=== PATIENT | female | born 1960 | race Caucasian/White ===

== ENCOUNTER → 2019-04-20 | Outpatient (CLI) | payer BC ==
--- NOTE | 2019-04-20 09:17 | RAD ---
EXAM: Chest, 2 views; thoracic spine, 3 views. HISTORY: Nontraumatic mid thoracic pain. COMPARISON: None. FINDINGS: 2 views of the chest and 3 views of the thoracic spine are obtained. There is linear lingular and left lower lobe opacity likely due to atelectasis or scarring. There is no consolidation, pleural effusion or pneumothorax. The heart is normal in size. There is apical pleural-parenchymal scarring. There is thoracolumbar scoliosis. There is slight increased kyphosis at the upper lumbar levels. There is also multilevel listhesis involving the cervical spine. There is degenerative endplate remodeling with disc space narrowing and osteophytosis at C5-C6 and C6-C7. This is not formally assessed on this exam. IMPRESSION: 1. Suspected linear lingular and left lower lobe atelectasis or scarring. The possibility of interstitial infiltrate is not completely excluded. 2. Multilevel degenerative change involving the cervical spine, primarily at C5-C7. There is also sclerosis, mild listhesis at the upper and mid cervical levels, and slight increased kyphosis of the upper lumbar levels. There is no acute osseous finding. Electronically signed by: Beata Arreola MD (04/20/2019 9:14 AM) [place] [id number]
--- NOTE | 2019-04-20 11:38 | RAD ---
CT CHEST WO CONTRAST History: Mid thoracic back pain. Technique: Noncontrast CT of the chest was performed. Coronal and sagittal reconstructions were performed. Exposure: One or more of the following individualized dose reduction techniques were utilized for this examination: 1. Automated exposure control 2. Adjustment of the mA and/or kV according to patient size 3. Use of iterative reconstruction technique. Comparison: None Findings: Chest: No consolidation or pleural effusion. Normal heart size. Bilateral breast implants. Small mediastinal lymph nodes the largest precarinal lymph node measures 1.1 x 0.8 cm, likely reactive. Minimal coronary artery calcifications. Mild centrilobular emphysema. Secretions within the right anterior middle lobe bronchus. Right medial middle lobe subsegmental atelectasis. Bilateral lower lobe subsegmental atelectasis or scarring. Tiny 2 mm right upper lobe pulmonary nodule (series 5 image #69). 2 mm right anterior upper lobe pulmonary nodule (image #[id number]). Upper abdomen: Left adrenal nodule measures 1.0 x 0.8 cm with decreased Hounsfield units compatible with adrenal adenoma. Bones: Accentuated thoracic kyphosis. T9 mild superior endplate compression fracture. Upper lumbar degenerative changes. Impression: 1. T9 mild superior endplate compression fracture, most likely chronic. Recommend comparison with prior imaging studies. If persistent clinical concern for acute pathology MRI can better evaluate. 2. Mild pulmonary emphysema. 3. Tiny pulmonary nodules. If the patient is high risk recommend one-year follow-up. 4. Right middle and bilateral lower lobe subsegmental atelectasis or scarring. 5. Small left adrenal adenoma. Electronically signed by: Julián Nelson DO (04/20/2019 11:35 AM) [id number]
== END | disposition home or self-care (01) ==
LOC: PMG 08:45
PROVIDERS: ATTEND Physician Assistant Medical
DX: M47.812 Spondylosis without myelopathy or radiculopathy, cervical region (principal); M41.85 Other forms of scoliosis, thoracolumbar region; M48.02 Spinal stenosis, cervical region; J43.2 Centrilobular emphysema; J98.11 Atelectasis; R91.8 Other nonspecific abnormal finding of lung field; M48.54XA Collapsed vertebra, not elsewhere classified, thoracic region, initial encounter for fracture; D35.02 Benign neoplasm of left adrenal gland
CPT/HCPCS: 71046; 71250; 72072

== ENCOUNTER → 2019-06-02 | Outpatient (CLI) | payer BC ==
--- NOTE | 2019-06-02 16:06 | RAD ---
Bone densitometry 06/02/2019 9:55 AM Indication: Adult fracture. Vertebral compression fracture. Comparison Study: None available.. Discussion: Bone Densitometry was performed with dual photon absorption of the lumbar spine and right proximal femur Lumbar Spine: Degenerative changes of the lumbar spine noted. This may affect measurement bone mineral density. Bone average density is 0.958g/cm2 for L1-L4. T-Score is -1.9. Right femoral neck: Bone average density is 0.783 g/cm2. T-Score is -1.8. IMPRESSION: Osteopenia. Bone mineral density measurement of the lumbar spine could be falsely elevated. Fracture risk is high. Recommend post therapeutic follow-up exam. Note: Definitions established by the World Health Organization: Normal: T-score is -1.0 or above. Osteopenia: T-score is between -1.0 and -2.5. Osteoporosis: T-score is -2.5 or below. Electronically signed by: Bobby Villalobos MD (06/02/2019 4:03 PM) [id number]
== END | disposition home or self-care (01) ==
LOC: DXRAD 09:47
PROVIDERS: ATTEND Physician Assistant Medical
DX: M85.88 Other specified disorders of bone density and structure, other site (principal); M48.54XA Collapsed vertebra, not elsewhere classified, thoracic region, initial encounter for fracture
CPT/HCPCS: 77080

== ENCOUNTER → 2019-12-21 | Outpatient (CLI) | payer BC ==
--- NOTE | 2019-12-21 08:49 | RAD ---
CT ABDOMEN PELVIS WO CONTRAST History: Pelvic pain. Technique: Noncontrast examination of the abdomen and pelvis. Coronal and sagittal reconstructions were performed. Exposure: One or more of the following individualized dose reduction techniques were utilized for this examination: 1. Automated exposure control 2. Adjustment of the mA and/or kV according to patient size 3. Use of iterative reconstruction technique. Comparison: None Findings: Lower chest: No consolidation or pleural effusion. Bilateral breast implants. Abdomen and pelvis: The liver, spleen, pancreas and gallbladder are unremarkable. No biliary ductal dilatation. Unremarkable noncontrast appearance of the kidneys. No hydronephrosis. No renal calculi. Decompressed urinary bladder. Duodenal diverticulum. 1.0 cm left adrenal nodule with decreased Hounsfield units compatible with benign adenoma. No follow-up imaging is recommended per consensus recommendations based on imaging criteria. Sigmoid colonic wall thickening with adjacent inflammatory changes and diverticulosis compatible with diverticulitis. No abscess. No pneumoperitoneum. Normal appendix. No evidence of bowel obstruction. No pathologic lymphadenopathy. No ascites. Atheromatous plaque throughout the nonaneurysmal abdominal aorta and branch vessels. Bones: Multilevel lumbar spondylosis most prominent L2-L3. Impression: 1. Acute sigmoid diverticulitis. No abscess or perforation. Electronically signed by: Julián Nelson DO (12/21/2019 8:46 AM) [id number]
[2019-12-21 09:15] LABS: BASO % 1 % (0-3); EOS # 0.2 x10^3/uL (0.0-0.7); EOS % 5 % (0-3); HEMATOCRIT 41.4 % (36.0-47.0); HEMOGLOBIN 13.5 g/dL (12.0-15.5); LYMPH # 1.2 x10^3/uL (1.0-4.8); LYMPH % 24 % (24-48); MEAN CORPUSCULAR HEMOGLOBIN 30 pg (25-35); MEAN CORPUSCULAR HGB CONC 33 g/dL (31-37); MEAN CORPUSCULAR VOLUME 91 fL (79-100); MONO # 0.3 x10^3/uL (0.0-1.1); MONO % 7 % (0-9); NEUT % 63 % (31-73); PLATELET COUNT 219 x10^3/uL (140-400); RED BLOOD COUNT 4.55 x10^6/uL (3.50-5.40); RED CELL DISTRIBUTION WIDTH 15.9 % (11.5-14.5); WHITE BLOOD COUNT 4.8 x10^3/uL (4.0-11.0)
[2019-12-21 09:17] LABS: ALBUMIN 3.7 g/dL (3.4-5.0); ALBUMIN/GLOBULIN RATIO 1.2 (1.0-1.7); CALCIUM 9.2 mg/dL (8.5-10.1); CREATININE 0.6 mg/dL (0.6-1.0); GFR 101.6; POTASSIUM 4.1 mmol/L (3.5-5.1); TOTAL BILIRUBIN 0.3 mg/dL (0.2-1.0); TOTAL PROTEIN 6.7 g/dL (6.4-8.2)
[2019-12-21 09:21] LABS: BILIRUBIN,URINE NEG (NEG); CLARITY,URINE HAZY; COLOR,URINE YELLOW; GLUCOSE,URINE NEG (NEG); NITRITE,URINE NEG (NEG); UROBILINOGEN,URINE 0.2 mg/dL (0.2 mg/dL)
[2019-12-21 09:22] LABS: BACTERIA,URINE FEW /HPF (0-FEW); RBC,URINE OCC /HPF (0-2); SQUAMOUS EPITHELIAL CELL,UR FEW /LPF
[2019-12-21 10:19] LABS: SEDIMENTATION RATE 10 (0-25)
== END | disposition home or self-care (01) ==
LOC: CT 08:11
PROVIDERS: ATTEND Physician Assistant Medical
DX: K57.30 Diverticulosis of large intestine without perforation or abscess without bleeding (principal); K57.32 Diverticulitis of large intestine without perforation or abscess without bleeding; K57.10 Diverticulosis of small intestine without perforation or abscess without bleeding; I70.0 Atherosclerosis of aorta; M47.816 Spondylosis without myelopathy or radiculopathy, lumbar region
CPT/HCPCS: 36415; 74176; 80053; 81001; 85025; 85651; 87086

== ENCOUNTER → 2020-03-17 | Outpatient (CLI) | payer BC ==
--- NOTE | 2020-03-17 15:40 | RAD ---
CT study of the abdomen and pelvis without contrast Clinical indications: Left lower quadrant abdominal pain. Diarrhea. TECHNIQUE: Noncontrast helical CT scanning of the abdomen and pelvis was performed. Without contrast, the sensitivity to detect organ pathology and GI tract pathology is decreased. PQRS compliance Statement One or more of the following individualized dose reduction techniques were utilized for this study: 1. Automated exposure control 2. Adjustment of the mA and/or kV according to patient size 3. Use of iterative reconstruction technique COMPARISON: December 21, 2019. FINDINGS: The liver and spleen and pancreas are homogeneous in appearance on this noncontrast study. Gallbladder is normal and no extrahepatic biliary ductal dilatation is seen. Small stable left adrenal adenoma seen. No hydronephrosis or hydroureter or urinary tract stone is evident. No focal aneurysmal dilatation of the abdominal aorta is seen. Small retroperitoneal lymph nodes are stable. No enlarged abdominal or pelvic lymphadenopathy is evident. Urinary bladder is not abnormally distended. No uterine mass is seen. No dominant ovarian cyst or mass is evident. The appendix is normal. No obstructive bowel pattern is evident. There is diffuse wall thickening of the sigmoid colon prominently involving the mid and distal aspects. There is moderate pericolonic inflammatory change here. Findings have progressed from the prior study. No abscess or free fluid is seen. No free intraperitoneal air is seen. No lung base consolidation is evident. No lytic process is seen. IMPRESSION: Worsening wall thickening and pericolonic inflammation of the sigmoid colon which may indicate worsening sigmoid diverticulitis or segmental colitis. No abscess or free air or bowel obstruction is seen. Electronically signed by: Linus Serrano MD (03/17/2020 3:37 PM) [id number]
== END ==
LOC: DXRAD 15:06
PROVIDERS: ATTEND Physician Assistant Medical
DX: K52.89 Other specified noninfective gastroenteritis and colitis (principal); D35.02 Benign neoplasm of left adrenal gland
CPT/HCPCS: 74176

== ENCOUNTER 2020-04-13 10:30 | Emergency (ER) | payer BC ==
[~2020-04-13] VITALS: Ht 167.6 cm; Wt 79.2 kg
[2020-04-13] MEDS ORDERED: CONTRAST GIVEN. MC PRN (11:00)
[2020-04-13] MEDS: IOHEXOL 300 MG/ML 75 ML VIAL. IV ONE (11:03)
--- NOTE | 2020-04-13 11:16 | PHYS DOC ---
General Adult EDM: Chief Complaint: ABDOMINAL PAIN HPI: HPI: 59-year-old female presents with lower abdominal pain. The patient had a colonoscopy prep last night because she is supposed to have a colonoscopy today in a few hours. She comes the emergency room because she has severe cramping of the lower abdominal area and the right side. She also has some blood in her last stool. She had an episode of vomiting about 7 hours ago. She no longer feels nauseous. She is very concerned about this increased pain. She was recently treated for diverticulitis in this colonoscopy as follow-up from that. She denies fever chills. Review of Systems: Review of Systems: Constitutional: Denies fever or chills Eyes: Denies change in visual acuity HENT: Denies nasal congestion or sore throat Respiratory: Denies cough or shortness of breath Cardiovascular: Denies chest pain or edema GI: Lower abdominal pain, nausea, vomiting, bloody stools, diarrhea : Denies dysuria Musculoskeletal: Denies back pain or joint pain Integument: Denies rash Neurologic: Denies headache, focal weakness or sensory changes Endocrine: Denies polyuria or polydipsia Lymphatic: Denies swollen glands Psychiatric: Denies depression or anxiety Heart Score: Risk Factors: Risk Factors: DM, Current or recent (<one month) smoker, HTN, HLP, family history of CAD, obesity. Risk Scores: Score 0 - 3: 2.5% MACE over next 6 weeks - Discharge Home Score 4 - 6: 20.3% MACE over next 6 weeks - Admit for Clinical Observation Score 7 - 10: 72.7% MACE over next 6 weeks - Early Invasive Strategies Current Medications: Current Meds: Current Medications Medications (Trade) Dose Ordered Sig/Sridevi Start Time Stop Time Status Last Admin Dose Admin Info (Do NOT chart on this entry -- for MONITORING) 1 each PRN DAILY PRN 04/13/20 11:00 04/15/20 10:59 Iohexol (Omnipaque 300 Mg/ml) 75 ml 1X ONCE 04/13/20 11:00 04/13/20 11:01 DC 04/13/20 11:03 75 ML Pantoprazole Sodium (Protonix Vial) 40 mg 1X ONCE 04/13/20 11:00 04/13/20 11:01 DC Sodium Chloride 1,000 ml @ 1,000 mls/hr 1X ONCE 04/13/20 11:00 04/13/20 11:59 Allergies: Allergies: Allergies Coded Allergies Type Severity Reaction Last Updated Verified acetaminophen Allergy Unknown 04/13/20 Yes oxycodone Allergy Unknown 04/13/20 Yes tizanidine Allergy Unknown 04/13/20 Yes Physical Exam: PE: Constitutional: Well developed, well nourished, no acute distress, non-toxic appearance. [] HENT: Normocephalic, atraumatic, bilateral external ears normal, oropharynx moist, no oral exudates, nose normal. [] Eyes: PERRLA, EOMI, conjunctiva normal, no discharge. [] Neck: Normal range of motion, no tenderness, supple, no stridor. [] Cardiovascular: Heart rate regular rhythm, no murmur [] Lungs & Thorax: Bilateral breath sounds clear to auscultation [] Abdomen: Bowel sounds normal, soft, lower abdominal tenderness with guarding, no masses, no pulsatile masses. [] Skin: Warm, dry, no erythema, no rash. [] Back: No tenderness, no CVA tenderness. [] Extremities: No tenderness, no cyanosis, no clubbing, ROM intact, no edema. [] Neurologic: Alert and oriented X 3, normal motor function, normal sensory function, no focal deficits noted. [] Psychologic: Affect normal, judgement normal, mood normal. [] EKG: EKG: [] Radiology/Procedures: Radiology/Procedures: [] Impressions: Study: CT abdomen/pelvis with intravenous contrast Indication: Abdominal pain. Comparison: Most recently on 03/17/2020 Technique: Helical CT imaging performed of the abdomen and pelvis after the intravenous administration of 75 cc Omnipaque contrast. Sagittal and coronal reformats were obtained. One or more of the following individualized dose reduction techniques were utilized for this examination: 1. Automated exposure control 2. Adjustment of the mA and/or kV according to patient size 3. Use of iterative reconstruction technique. Findings: Chest: Unchanged partially imaged breast implants. Mild basilar atelectasis. Liver: Mild hepatic steatosis. A few subcentimeter low-attenuation foci such as seen within the right hepatic lobe on image 9 series 2 were present on the comparison and have not significant changed. Gallbladder/Biliary Tree: No CT findings of acute cholecystitis. Pancreas: Unremarkable. Spleen: Within normal limits for size. Adrenal Glands: Unchanged left adrenal adenoma. Kidneys/Ureters/Bladder: Both kidneys are within normal limits. No hydroureteronephrosis. Reactive inflammatory changes surrounding the partially decompressed bladder. Reproductive Organs: Small left ovarian cyst is better seen on this contrast enhanced study relative to the comparison but was present previously and has not significant changed in size. Unremarkable right adnexa. Reactive inflammatory changes surrounding the uterus. As detailed below, a fluid and gas containing collection compatible with an abscess secondary to diverticulitis abuts the cephalad margin of the uterine fundus, image 31 series 4. Colon: Extensive inflammatory changes surrounding the mid sigmoid colon that has progressed since the 03/17/2020 comparison. Given the presence of diverticuli this is again most likely on account of diverticulitis. There is now a peripherally enhancing fluid collection containing gas that tracks below as well as along both sides of the sigmoid colon. This collection is well seen along the margin of the colon on image 62 series 2 and below the colon abutting the cephalad margin of the uterus on image 25 series 3. This abscess measures up to 3.5 cm craniocaudal by 4 cm transverse by 4.6 cm AP. No localized wall thickening or pericolonic inflammation of the colon proximal to the sigmoid aspect. Incompletely formed stool within portions of the colon. Appendix: Normal. Small Bowel: Reactive inflammatory changes of small bowel within the lower abdomen/upper pelvis. No small bowel obstruction. Stomach: Not well evaluated due to underdistention. Vasculature: Scattered calcified and noncalcified atheromatous plaque. Mildly tortuous but nonaneurysmal abdominal aorta. Lymph Nodes: Within normal limits. Peritoneum and Body Wall: Small volume free fluid along the right pelvic sidewall such as on image 64 series 2 without peripheral enhancement to suggest an additional drainable fluid collection. Scant amount of free fluid within the deep pelvis. No free air seen throughout the abdomen. Bones: New from 03/17/2020 is a superior endplate compression fracture at T11 with approximately 30-40 percent central height loss. No significant retropulsion and there is no osseous central canal or neural foraminal encroachment at this level. This is favored subacute in age. No change in vertebral body height elsewhere. There is again lumbar levocurvature with the apex at L2-L3 and degenerative rightward translation of L1 on L2. Miscellaneous: None. Impression: 1. Worsened inflammatory changes centered around the mid sigmoid colon since 03/17/2020. Given background diverticulosis this is most compatible with worsening diverticulitis. There is now a rim-enhancing fluid collection containing gas compatible with an abscess that tracks along both the right and left aspect of the sigmoid colon over a short length and extends downward to abut the upper margin of the uterus measuring up to 3.5 cm craniocaudal x 4 cm transverse x 4.6 in meters AP. Small amount of free pelvic fluid elsewhere without peripheral enhancement to suggest an additional abscess. Follow-up is recommended to confirm resolution and exclude an underlying mass. 2. New from 03/17/2020 but appearing subacute is a superior endplate compression fracture at T11 with up to approximately 30-40 percent central height loss and no retropulsion. 3. Additional chronic findings as detailed in the body the report. Electronically signed by: HARJIT OHARA MD (04/13/2020 11:49 AM) [id number] DICTATED AND SIGNED BY: HARJIT OHARA MD DATE: 04/13/20 1149 CC: MICHAEL LOPEZ DO; [facility] ~ Course & Med Decision Making: Course & Med Decision Making Pertinent Labs and Imaging studies reviewed. (See chart for details) The patient has not has an elevated white count of 22. Her CT scan shows worsening diverticulitis with abscess formation. See official read for more details. I have started her on Zosyn. I spoke with Dr. Ch and he has recommended transferring the patient to [facility]. He has accepted her for admission and transfer. The patient is in agreement with this plan. She will go by ambulance. [] Dragon Disclaimer: Dragon Disclaimer: This electronic medical record was generated, in whole or in part, using a voice recognition dictation system. Departure Departure: Impression: Primary Impression: Diverticulitis Disposition: 02 XFER [facility] Admitting Physician: Aspen Ch Condition: STABLE Referrals: [facility] (PCP) Justification of Admission: Justification of Admission: Justification of Admission Dx: Yes Comments: Diverticulitis with abscess MICHAEL LOPEZ DO Apr 13, 2020 11:16
[2020-04-13 11:18] LABS: BASO # 0.1 x10^3/uL (0.0-0.2); BASO % 1 % (0-3); EOS % 0 % (0-3); HEMATOCRIT 44.7 % (36.0-47.0); HEMOGLOBIN 14.6 g/dL (12.0-15.5); LYMPH % 4 % (24-48); MEAN CORPUSCULAR HEMOGLOBIN 30 pg (25-35); MEAN CORPUSCULAR HGB CONC 33 g/dL (31-37); MEAN CORPUSCULAR VOLUME 90 fL (79-100); MONO # 1.1 x10^3/uL (0.0-1.1); MONO % 5 % (0-9); NEUT # 20.4 x10^3uL (1.8-7.7); NEUT % 90 % (31-73); PLATELET COUNT 221 x10^3/uL (140-400); RED BLOOD COUNT 4.95 x10^6/uL (3.50-5.40); RED CELL DISTRIBUTION WIDTH 17.8 % (11.5-14.5); WHITE BLOOD COUNT 22.6 x10^3/uL (4.0-11.0)
[2020-04-13] MEDS: IV NORMAL SALINE 1,000ML 1,000 ML IV ONE (11:20)
[2020-04-13] MEDS: PANTOPRAZOLE IV 40 MG VIAL. IVP ONE (11:21)
[2020-04-13 11:32] LABS: CREATININE 1.1 mg/dL (0.6-1.0); GFR 50.5; POTASSIUM 3.7 mmol/L (3.5-5.1)
[2020-04-13 11:38] LABS: ALBUMIN 3.7 g/dL (3.4-5.0); ALBUMIN/GLOBULIN RATIO 1.2 (1.0-1.7); TOTAL BILIRUBIN 0.8 mg/dL (0.2-1.0); TOTAL PROTEIN 6.7 g/dL (6.4-8.2)
--- NOTE | 2020-04-13 11:52 | RAD ---
Study: CT abdomen/pelvis with intravenous contrast Indication: Abdominal pain. Comparison: Most recently on 03/17/2020 Technique: Helical CT imaging performed of the abdomen and pelvis after the intravenous administration of 75 cc Omnipaque contrast. Sagittal and coronal reformats were obtained. One or more of the following individualized dose reduction techniques were utilized for this examination: 1. Automated exposure control 2. Adjustment of the mA and/or kV according to patient size 3. Use of iterative reconstruction technique. Findings: Chest: Unchanged partially imaged breast implants. Mild basilar atelectasis. Liver: Mild hepatic steatosis. A few subcentimeter low-attenuation foci such as seen within the right hepatic lobe on image 9 series 2 were present on the comparison and have not significant changed. Gallbladder/Biliary Tree: No CT findings of acute cholecystitis. Pancreas: Unremarkable. Spleen: Within normal limits for size. Adrenal Glands: Unchanged left adrenal adenoma. Kidneys/Ureters/Bladder: Both kidneys are within normal limits. No hydroureteronephrosis. Reactive inflammatory changes surrounding the partially decompressed bladder. Reproductive Organs: Small left ovarian cyst is better seen on this contrast enhanced study relative to the comparison but was present previously and has not significant changed in size. Unremarkable right adnexa. Reactive inflammatory changes surrounding the uterus. As detailed below, a fluid and gas containing collection compatible with an abscess secondary to diverticulitis abuts the cephalad margin of the uterine fundus, image 31 series 4. Colon: Extensive inflammatory changes surrounding the mid sigmoid colon that has progressed since the 03/17/2020 comparison. Given the presence of diverticuli this is again most likely on account of diverticulitis. There is now a peripherally enhancing fluid collection containing gas that tracks below as well as along both sides of the sigmoid colon. This collection is well seen along the margin of the colon on image 62 series 2 and below the colon abutting the cephalad margin of the uterus on image 25 series 3. This abscess measures up to 3.5 cm craniocaudal by 4 cm transverse by 4.6 cm AP. No localized wall thickening or pericolonic inflammation of the colon proximal to the sigmoid aspect. Incompletely formed stool within portions of the colon. Appendix: Normal. Small Bowel: Reactive inflammatory changes of small bowel within the lower abdomen/upper pelvis. No small bowel obstruction. Stomach: Not well evaluated due to underdistention. Vasculature: Scattered calcified and noncalcified atheromatous plaque. Mildly tortuous but nonaneurysmal abdominal aorta. Lymph Nodes: Within normal limits. Peritoneum and Body Wall: Small volume free fluid along the right pelvic sidewall such as on image 64 series 2 without peripheral enhancement to suggest an additional drainable fluid collection. Scant amount of free fluid within the deep pelvis. No free air seen throughout the abdomen. Bones: New from 03/17/2020 is a superior endplate compression fracture at T11 with approximately 30-40 percent central height loss. No significant retropulsion and there is no osseous central canal or neural foraminal encroachment at this level. This is favored subacute in age. No change in vertebral body height elsewhere. There is again lumbar levocurvature with the apex at L2-L3 and degenerative rightward translation of L1 on L2. Miscellaneous: None. Impression: 1. Worsened inflammatory changes centered around the mid sigmoid colon since 03/17/2020. Given background diverticulosis this is most compatible with worsening diverticulitis. There is now a rim-enhancing fluid collection containing gas compatible with an abscess that tracks along both the right and left aspect of the sigmoid colon over a short length and extends downward to abut the upper margin of the uterus measuring up to 3.5 cm craniocaudal x 4 cm transverse x 4.6 in meters AP. Small amount of free pelvic fluid elsewhere without peripheral enhancement to suggest an additional abscess. Follow-up is recommended to confirm resolution and exclude an underlying mass. 2. New from 03/17/2020 but appearing subacute is a superior endplate compression fracture at T11 with up to approximately 30-40 percent central height loss and no retropulsion. 3. Additional chronic findings as detailed in the body the report. Electronically signed by: HARJIT OHARA MD (04/13/2020 11:49 AM) [id number]
[2020-04-13] MEDS ORDERED: IV NORMAL SALINE 50ML 50 ML ONE (12:19)
[2020-04-13] MEDS ORDERED: PIPERACILLIN/TAZOBACTAM 3.375 GM VIAL IV ONE (12:19)
[2020-04-13] MEDS: PIPERACILLIN/TAZOBACTAM 3.375 GM in IV NORMAL SALINE 50ML 50 ML IV ONE (12:24)
[2020-04-13 12:37] LABS: % ATYL 1 % (0-0); % BANDS 16 % (0-9); % LYMPHS 1 % (24-48); % MONOS 5 % (0-10); % SEGS 77 % (35-66)
[2020-04-13 12:38] LABS: PLT ESTIMATE ADEQUATE (ADEQUATE)
[2020-04-13] MEDS: ONDANSETRON PF 4 MG/2 ML VIAL. IVP ONE (12:51)
[2020-04-13] MEDS: MORPHINE SULFATE 4 MG/ML DISP.SYRIN. IV ONE (12:52)
[2020-04-13 14:15] VITALS: BP 143/100
[2020-04-13 14:41] LABS: BACTERIA,URINE 0 /HPF (0-FEW); BILIRUBIN,URINE NEG (NEG); CLARITY,URINE CLEAR; COLOR,URINE YELLOW; GLUCOSE,URINE NEG (NEG); NITRITE,URINE NEG (NEG); RBC,URINE 0 /HPF (0-2); SQUAMOUS EPITHELIAL CELL,UR FEW /LPF; UROBILINOGEN,URINE 0.2 mg/dL (0.2 mg/dL); WBC,URINE 0 /HPF (0-4)
== END 2020-04-13 14:15 | disposition short-term general hospital (02) ==
LOC: ER 10:30
DX: K57.80 Diverticulitis of intestine, part unspecified, with perforation and abscess without bleeding (principal); R11.2 Nausea with vomiting, unspecified; Z88.6 Allergy status to analgesic agent; Z88.5 Allergy status to narcotic agent
CPT/HCPCS: 36415; 74177; 80053; 81001; 85007; 85025; 96361; 96365; 96366; 96375; 99285; C9113; J2270; J2405; J2543; J7030; Q9967

== ENCOUNTER → 2020-05-09 | Outpatient (CLI) | payer BC ==
[2020-04-13 14:15] VITALS: BP 143/100
[~2020-05-09] MED LIST: IOHEXOL 240 MG/ML 50ML VIAL. ONE; IOHEXOL 240 MG/ML 50ML VIAL. PO ONE; IOHEXOL 300 MG/ML 75 ML VIAL. IV ONE
--- NOTE | 2020-05-09 15:57 | RAD ---
CT ABD PELV W/ORAL IV CONTRAST Indication: Abscess, drain Technique: Postcontrast CT imaging was performed of the abdomen and pelvis, multiplanar reconstruction images submitted. Oral contrast was also given. One or more of the following individualized dose reduction techniques were utilized for this examination: 1. Automated exposure control 2. Adjustment of the mA and/or kV according to patient size 3. Use of iterative reconstruction technique. Comparison: April 13, 2020 Findings: There is some motion. There is now pigtail catheter terminating in the left parasagittal pelvis. This is located just superior to the uterus and inferior to the mid sigmoid colon. There is no significant residual fluid collection in the pelvis about the catheter. Previously seen inflammatory change in the pelvis has significantly decreased, some residual most notably along the posterior aspect of the mid sigmoid colon. Focus of density in the left pelvis image 67 series 2 about 1.3 cm is believed to be a component of left adnexa. There is some residual wall thickening of the mid sigmoid colon. There is variable retained stool of the descending and sigmoid colon. Bowel is not dilated. There is no free air or significant free fluid. Normal caliber appendix is visualized without adjacent inflammatory change. There is again likely diverticulum along the descending duodenum. Some patchy minimal density of the visualized lung parenchyma at the lung bases is more likely component of atelectasis. No new abnormality is identified of the liver, spleen, or pancreas. There are again a few tiny hypodense foci of the liver too small to characterize, largest 0.2 cm. Gallbladder is present without obvious intraluminal abnormality by CT. Both kidneys enhance. There is now very mild left hydroureter and hydronephrosis. There is mild right renal pelviectasis and mild right hydroureter. Urinary bladder is somewhat distended. 1 cm likely nodule of the left adrenal gland is similar. There is emphysema of the visualized lung bases. There is again superior T11 compression deformity although new since March 17, 2020 exam. There is superior compression deformity of T9 vertebral body, present on April 20, 2019 CT chest exam. There is advanced degenerative disc disease at L2-3 and to a somewhat lesser degree at L1-2, also spondylosis greatest at L2-3. There is [id number] levoscoliosis centered near L2-3. There is mild right lateral subluxation of L1 relative to L2. There is some scattered mild calcified plaque of the abdominal aorta. IMPRESSION: 1. There is now a pigtail catheter in the pelvis as described, no significant residual fluid collection/abscess about the thick walled, mid sigmoid colon. Colonic wall thickening again may be due to to sequela of diverticulitis although mass not excludable by imaging. Small focus of density of the left pelvis is believed to be due to the adnexa. 2. There is new mild bilateral hydroureter, also mild left hydronephrosis. Urinary bladder is somewhat distended. 3. Small left adrenal nodule is similar. 4. There is again superior T11 compression deformity although new since March 17, 2020 exam. There is old T9 compression deformity. Electronically signed by: Juve Dasilva MD (05/09/2020 3:54 PM) [facility]
== END ==
LOC: CT 08:25
PROVIDERS: ATTEND Physician Assistant Medical
DX: K57.32 Diverticulitis of large intestine without perforation or abscess without bleeding (principal); M43.8X4 Other specified deforming dorsopathies, thoracic region; N13.30 Unspecified hydronephrosis; N32.89 Other specified disorders of bladder
CPT/HCPCS: 74177; Q9967